=== PATIENT | male | born 1955 | race Caucasian/White ===

== ENCOUNTER → 2018-01-17 10:07 | Outpatient (CLI) | payer BC, SELFPAY ==
[2018-01-17 11:04] LABS: Hemoglobin A1C% w Est Avg Glu 6.7 % (4.0-6.0)
[2018-01-17 11:12] LABS: Alanine Aminotransferase 45 IU/L (21-72); Albumin 4.4 g/dL (3.5-5.0); Albumin Globulin Ratio 1.5 (1.0-2.8); Alkaline Phosphatase 71 U/L (38-126); Aspartate Aminotransferase 43 IU/L (17-59); BUN Creatinine Ratio 22.2 (6-22); Bilirubin Total 0.6 mg/dL (0.2-1.3); Blood Urea Nitrogen 20 mg/dL (9-20); Calcium 9.3 mg/dL (8.4-10.2); Carbon Dioxide 31 mmol/L (22-32); Chloride 104 mmol/L (98-107); Cholesterol 120 mg/dL (140-199); Estimated Glomerular Filt Rate > 60.0 mL/min (>60); Globulin 2.9 g/dL (1.7-4.1); Glucose 113 mg/dL (80-110); HDL Cholesterol 44 mg/dL (40-60); HEMOLYSIS < 15 (0-50); LDL Cholesterol Calculated 56 mg/dL (<100); Potassium 4.5 mmol/L (3.4-5.1); Sodium 144 mmol/L (137-145); Total Protein 7.3 g/dL (6.3-8.2); Triglycerides 98 mg/dL (35-150)
[2018-01-17 11:35] LABS: Free T4, Direct Thyroxine 0.91 ng/dL (0.78-2.19)
[2018-01-17 11:48] LABS: Thyroid Stimulating Hormone 4.21 uIU/mL (0.47-4.68)
[2018-01-17 11:57] LABS: Free T3, Triiodothyronine Free 3.36 pg/mL (2.77-5.27)
== END ==
PROVIDERS: Visit Provider Internal Medicine
DX: E11.9 Type 2 diabetes mellitus without complications (principal); E03.9 Hypothyroidism, unspecified; I10 Essential (primary) hypertension; E78.00 Pure hypercholesterolemia, unspecified; E66.9 Obesity, unspecified
CPT/HCPCS: 36415; 80053; 80061; 83036; 84439; 84443; 84481

== ENCOUNTER → 2018-05-16 10:15 | Outpatient (CLI) | payer BC, SELFPAY ==
--- NOTE | 2018-05-16 | DI.RAD.S_ITS ---
PROCEDURE: XR CHEST 2V INDICATIONS: COUGH TECHNIQUE: 2 views of the chest were acquired. COMPARISON: None. FINDINGS: Surgical changes and devices: None. Lungs and pleura: Lungs are clear. No pleural effusions or pneumothorax. Mediastinum: Mediastinal contours are normal. Heart size is normal. Bones and chest wall: No suspicious bony abnormalities. Soft tissues appear unremarkable. IMPRESSION: No acute cardiopulmonary findings. Dictated by: Yara Parra M.D. on 05/16/2018 at 10:50 Approved by: Yara Parra M.D. on 05/16/2018 at 10:51
== END ==
PROVIDERS: PCP Internal Medicine; Visit Provider Student in an Organized Health Care Education/Training Program
DX: R05 Cough (principal)
CPT/HCPCS: 71046

== ENCOUNTER → 2019-02-02 16:03 | Outpatient (ROUT) | payer BC, SELFPAY ==
[2019-02-02 16:37] LABS: Alanine Aminotransferase 31 IU/L (21-72); Aspartate Aminotransferase 43 IU/L (17-59); BUN Creatinine Ratio 26.3 (6-22); Blood Urea Nitrogen 21 mg/dL (9-20); Carbon Dioxide 27 mmol/L (22-32); Chloride 101 mmol/L (98-107); Cholesterol 164 mg/dL (140-199); Estimated Glomerular Filt Rate > 60.0 mL/min (>60); Glucose 92 mg/dL (80-110); HDL Cholesterol 55 mg/dL (40-60); HEMOLYSIS 49 (0-50); LDL Cholesterol Calculated 72 mg/dL (<100); Potassium 4.7 mmol/L (3.4-5.1); Sodium 139 mmol/L (137-145); Triglycerides 184 mg/dL (35-150)
[2019-02-02 17:09] LABS: TSH w/ Reflex to FT4 2.43 uIU/mL (0.47-4.68)
== END ==
PROVIDERS: PCP Internal Medicine; Visit Provider Internal Medicine
DX: E78.00 Pure hypercholesterolemia, unspecified (principal); I10 Essential (primary) hypertension; E03.9 Hypothyroidism, unspecified; E11.9 Type 2 diabetes mellitus without complications
CPT/HCPCS: 80048; 80061; 83036; 84443; 84450; 84460

== ENCOUNTER → 2021-10-24 07:56 | Outpatient (CLI) | payer MEDICARE, OTHER, SELFPAY ==
--- NOTE | 2021-10-24 | DI.MRI.S_ITS ---
PROCEDURE: MR LUMBAR SPINE WO CON INDICATIONS: Spinal stenosis, lumbar region TECHNIQUE: Noncontrast sagittal T1 spin echo and T2 fast echo, sagittal STIR, and T2 fast spin echo through the lumbar spine. In cases with scoliosis, additional coronal T2 fast spin echo may be performed. COMPARISON: None. FINDINGS: Straightening of the usual lumbar lordosis. No listhesis. Vertebral body heights maintained. No suspicious focal marrow signal abnormality. Normal position and appearance of the conus. Prevertebral and paraspinous soft tissues are normal. Indeterminate left renal lesion which is slightly T2 hyperintense to normal cortex measuring 1.4 centimeters. T12-L1: No spinal canal or neural foraminal stenosis. L1-L2: Diffuse disc bulge and a superimposed broad-based posterior disc protrusion flattening and indenting the ventral thecal sac with mild mass effect on the descending L2 nerve roots. Foraminal components of the disc bulge and facet hypertrophy combine to produce mild right greater than left neural foraminal stenosis. L2-L3: Diffuse disc bulge flattens the ventral thecal sac without mass effect upon the traversing L3 nerve roots. Foraminal components of the disc bulge and facet hypertrophy contribute to trace neural foraminal narrowing on the left. L3-L4: Diffuse disc bulge and superimposed broad-based posterior disc protrusion flattens and indents the ventral thecal sac with mild mass effect upon the descending L4 nerve roots in both subarticular zones. Mild bilateral neural foraminal narrowing due to foraminal components of the disc bulge and facet hypertrophy. L4-L5: Diffuse disc bulge with a superimposed broad-based posterior disc protrusion flattens and indents the ventral thecal sac with moderate mass effect upon the descending L5 nerve roots in both subarticular zones, right greater than left. Foraminal components of the disc bulge and facet hypertrophy contribute to moderate right and mild left neural foraminal stenosis with mass effect upon the exiting right L4 nerve root. L5-S1: Diffuse disc bulge with mild displacement of the descending right S1 nerve roots in the right subarticular zone. Moderate bilateral neural foraminal stenosis with disc material abutting and perhaps slightly flattening the exiting L5 nerve roots in both neural foramina. IMPRESSION: Multilevel multifactorial degenerative changes worst at L4-L5 and L5-S1. Indeterminate 1.3 cm left renal mass, likely a proteinaceous or hemorrhagic cyst. Dictated by: Cipriano Dominguez M.D. on 10/24/2021 at 9:20 Approved by: Cipriano Dominguez M.D. on 10/24/2021 at 9:45
== END ==
PROVIDERS: Referring Provider Orthopaedic Surgery; Visit Provider Orthopaedic Surgery
DX: M48.062 Spinal stenosis, lumbar region with neurogenic claudication (principal); M47.816 Spondylosis without myelopathy or radiculopathy, lumbar region; M47.817 Spondylosis without myelopathy or radiculopathy, lumbosacral region; N28.89 Other specified disorders of kidney and ureter
CPT/HCPCS: 72148

== ENCOUNTER 2021-10-25 12:19 | Emergency (ER) | payer MEDICARE, OTHER, SELFPAY ==
[2021-10-25 12:26] VITALS: BP 191/88; PULSE 85; RESP 18; TEMP 35.7; O2SAT 98; BMI 38.0
--- NOTE | 2021-10-25 12:36 | DI.RAD.S_ITS ---
PROCEDURE: XR HUMERUS RT 2V INDICATIONS: fall 2 weeks ago, grabbed door jamb with right arm TECHNIQUE: 2 a views of the humerus were acquired. COMPARISON: None. FINDINGS: Bones: No fractures or dislocations. No suspicious bony lesions. Age-appropriate bony degenerative changes are seen. Soft tissues: No suspicious soft tissue calcifications. IMPRESSION: Plain film study within normal limits for age. Dictated by: Francisco Schulte M.D. on 10/25/2021 at 12:34 Approved by: Francisco Schulte M.D. on 10/25/2021 at 12:35
[2021-10-25 13:05] VITALS: PULSE 75
--- NOTE | 2021-10-25 13:43 | DI.US.S_ITS ---
PROCEDURE: US PERIPH VENOUS UP EXTREM RT INDICATIONS: dvt? TECHNIQUE: Real-time imaging, as well as color and pulse Doppler interrogation, was performed of the right upper extremity deep veins from the inferior neck to the antecubital fossa. COMPARISON: [facility], CR, XR HUMERUS RT 2V, 10/25/2021, 13:46. FINDINGS: The internal jugular vein, visualized portions of the subclavian vein, axillary, and brachial veins are free of intraluminal thrombus. Where physically possible, the veins are normally compressible. Color and pulse Doppler demonstrate normal intraluminal flow, with expected phasicity and pulsatility. Additional scanning of the cephalic and basilic veins of the superficial system demonstrate normal compressibility, without thrombus. No significant soft tissue abnormality can be seen along the area of clinical bruising. IMPRESSION: Negative for deep venous thrombosis. Dictated by: Francisco Schulte M.D. on 10/25/2021 at 13:27 Approved by: Francisco Schulte M.D. on 10/25/2021 at 13:28
--- NOTE | 2021-10-25 15:42 | ED_ITS ---
HPI - Extremity Injury (Upper) General Chief Complaint: Extremity Injury, Upper Stated Complaint: Right Arm Internal Bleeding Time Seen by Provider: 10/25/21 13:00 Source: patient Mode of arrival: Ambulatory History of Present Illness HPI narrative: This 65-year-old gentleman comes to the ED with a large ecchymosis over the right anterior shoulder and upper arm. He says it has appeared gradually over the past 48 hours. He says about 2 and half weeks ago he slipped and almost fell and caught himself by grabbing onto a door jam he may have bumped his right arm slightly at the time. He did not notice any pain at all until the past 2 days. He takes DOAC because of coronary disease. He also suffers from obstructive sleep apnea. He denies any other signs or symptoms of illness or injury including fever or chest symptoms Related Data Home Medications Medication Instructions Recorded Confirmed aspirin 81 mg tablet,delayed 162 mg PO Q DAY ##0 07/30/10 02/02/19 release amlodipine 5 mg tablet (Norvasc) 5 mg PO QDAY ##0 06/23/17 02/02/19 atorvastatin 40 mg tablet 40 mg PO 90 days 09/27/17 02/02/19 levothyroxine 25 mcg tablet 25 mcg PO 90 days 09/27/17 02/02/19 losartan 50 mg tablet 50 mg PO 90 days 09/27/17 02/02/19 multivitamin 1 tab PO DAILY 09/27/17 02/02/19 nitroglycerin 0.4 mg sublingual 0.4 mg sublingual 12 days 09/27/17 02/02/19 tablet [employer] Remstar CPAP #1 ea 02/07/19 Previous Rx's Medication Instructions Recorded hydroxyzine pamoate 25 mg capsule 25 mg PO QID PRN anxiety #60 caps 12/22/17 sertraline 100 mg tablet 100 mg PO DAILY #90 tabs 07/14/18 Allergies Allergy/AdvReac Type Severity Reaction Status Date / Time codeine [CODEINE] Allergy Severe BAD RASH Unverified 02/02/19 14:38 Review of Systems Review of Systems Narrative: Complete review of systems is negative other than as noted Patient History Medical History (Updated 10/25/21 @ 15:50 by Rajinder Banuelos MD) Obesity (BMI 30-39.9) Obstructive sleep apnea Social History Smoking Status: Never smoker Smoking Status: Never smoker alcohol intake frequency: holidays/special occasions only Substance Use Type: does not use Exam Narrative Exam Narrative: GENERAL: Alert, cooperative and in no distress. HEAD: Atraumatic. Normocephalic. EYES: Sclera are clear without icterus. Extraocular movements are full. ENT: No rhinorrhea NECK: No visible abnormality RESPIRATORY: No respiratory distress GASTROINTESTINAL: Nondistended EXTREMITIES: He has a large ecchymosis starting at the anterior shoulder radiating down onto the biceps area. There is no fluctuance or erythema or excessive tenderness or warmth. NEURO: Nonfocal, normal speech SKIN: No rash or erythema of visible areas PSYCH: Normally oriented. Normal range of affect. Appropriate behavior Initial Vital Signs Initial Vital Signs: Vital Signs Temperature 96.3 F L 10/25/21 12:26 Pulse Rate 85 10/25/21 12:26 Respiratory Rate 18 10/25/21 12:26 Blood Pressure 191/88 H 10/25/21 12:26 Pulse Oximetry 98 10/25/21 12:26 Oxygen Delivery Method 10/25/21 12:26 Course Orders Ordered: ED Orders 10/25/21 12:36 XR humerus RT 2V Stat 10/25/21 13:43 US periph venous up extrem rt Stat Vital Signs Vital signs: Vital Signs - 8 hr 10/25/21 12:26 10/25/21 13:05 Temperature 96.3 F L Pulse Rate 85 Pulse Rate [Right Radial] 75 Respiratory Rate 18 Blood Pressure 191/88 H Pulse Oximetry 98 Oxygen Delivery Method Room Air MDM - Extremity Injury (Upper) Imaging Data US - DVT: Radiologist's Impression: IMPRESSION: Negative for deep venous thrombosis. Dictated by: Francisco Schulte M.D. on 10/25/2021 at 13:27 Approved by: Francisco Schulte M.D. on 10/25/2021 at 13:28 [facility] Narrative Medical decision making narrative: This looks like an ecchymosis. I do not suspect DVT especially in light of the negative ultrasound. I think this is probably a minor injury that is made worse because of his anticoagulant. I recommend compression dressing, warm compresses and outpatient follow-up Discharge Plan Departure Patient Disposition: Home Clinical Impression: Hematoma Activity Restrictions/Additional Instructions: You have a hematoma in your arm. No deep vein clot and no fluid collection that needs any special treatment. This is probably a result of the anticoagulant that you take in the setting of a relatively minor injury otherwise. To help this resolve more quickly I recommend compressive dressings and warm compresses. Usually expected to slowly resolve over the next few weeks. If he becomes dramatically more painful or feels like a water balloon, follow-up with your doctor for further evaluation. If you have other severe symptoms such as sudden shortness of breath or fainting or chest pain, return to the emergency department. Continue to take your medications as previously prescribed. Prescriptions: No Action atorvastatin 40 mg TABLET 40 mg PO 90 Days losartan 50 mg TABLET 50 mg PO 90 Days levothyroxine 25 mcg TABLET 25 mcg PO 90 Days nitroglycerin 0.4 mg tablet, sublingual 0.4 mg SL 12 Days multivitamin tablet 1 tab PO DAILY hydroxyzine pamoate 25 mg capsule 25 mg PO QID PRN (Reason: anxiety) Qty: 60 2RF Rx Instructions: OK to take 1-2 caps every 6 hours aspirin 81 MG tablet,delayed release (DR/EC) 162 mg PO Q DAY Qty: 0 amlodipine [Norvasc] 5 MG tablet 5 mg PO QDAY Qty: 0 sertraline 100 mg tablet 100 mg PO DAILY Qty: 90 0RF Rx Instructions: take 1 tab daily (DME) [employer] Remstar CPAP Qty: 1 Dose Instruction: As directed Rx Instructions: Pressure: 8-16 cmH2O DME: [facility] Referrals: Ivy Obrien PA-C [Primary Care Provider] -
[2021-10-25 16:07] VITALS: BP 125/61; PULSE 72; RESP 18; O2SAT 98
== END 2021-10-25 16:08 | disposition home or self-care (01) ==
PROVIDERS: Emergency Provider Family Medicine Addiction Medicine; PCP Student in an Organized Health Care Education/Training Program
DX: S40.011A Contusion of right shoulder, initial encounter (principal); W19.XXXA Unspecified fall, initial encounter
CPT/HCPCS: 73060; 93971; 99281; 99283

== ENCOUNTER → 2021-10-31 18:50 | Outpatient (CLI) | payer MEDICARE, OTHER, SELFPAY ==
--- NOTE | 2021-10-31 | DI.MRI.S_ITS ---
PROCEDURE: MR SHOULDER RT WO CON INDICATIONS: Right proximal biceps tear TECHNIQUE: Noncontrast oblique coronal T2 fast spin echo with fat saturation, oblique sagittal T1 spin echo and T2 fast spin echo with fat saturation, axial T1 spin echo and T2 fast spin echo with fat saturation through the shoulder. COMPARISON: [facility], CR, XR HUMERUS RT 2V, 10/25/2021, 13:46. FINDINGS: Image quality: Partially degraded by motion artifact. Rotator cuff: Moderate T2 signal elevation throughout the supraspinatus and infraspinatus tendons at the humeral insertion sites extending to the musculotendinous junctions, indicating tendinopathy. Superimposed high-grade intrasubstance and articular surface tearing of the anterior/mid supraspinatus tendon at the humeral insertion site extending to the musculotendinous junction, measuring roughly 8 mm diameter. Low-grade partial-thickness bursal surface tearing of the posterior supraspinatus tendon at the humeral insertion site. Low-grade partial-thickness intrasubstance tearing of the mid and anterior infraspinatus tendon at the humeral insertion site. Low-grade partial-thickness intrasubstance tearing of the upper and lower subscapularis tendon at the humeral insertion site extending to the musculotendinous junction. No rotator cuff atrophy. Bones and bursae: No bone marrow contusions or fractures. Mild glenohumeral and moderate acromioclavicular joint degeneration. The acromion demonstrates conventional anatomy, without an os acromiale. No pathologic subacromial-subdeltoid or subcoracoid bursal fluid is present. Capsule and soft tissues: Labrum is grossly unremarkable The long head of the biceps tendon demonstrates normal location and morphology. The rotator interval appears normal, without fibrosis. The coracohumeral ligament is normal in thickness. IMPRESSION: 1. Supraspinatus and infraspinatus tendinopathy. 2. Superimposed high-grade tearing of the anterior supraspinatus tendon. Low-grade tearing of the remainder of the supraspinatus as well as the infraspinatus and subscapularis tendons. 3. Acromioclavicular osteoarthritis. Dictated by: Masood Fuentes M.D. on 11/03/2021 at 8:19 Approved by: Masood Fuentes M.D. on 11/03/2021 at 8:21
== END ==
PROVIDERS: PCP Student in an Organized Health Care Education/Training Program; Referring Provider Orthopaedic Surgery; Visit Provider Orthopaedic Surgery
DX: S46.211A Strain of muscle, fascia and tendon of other parts of biceps, right arm, initial encounter (principal); M75.111 Incomplete rotator cuff tear or rupture of right shoulder, not specified as traumatic; M19.011 Primary osteoarthritis, right shoulder
CPT/HCPCS: 73221

== ENCOUNTER → 2023-09-23 08:50 | Outpatient (CLI) | payer MEDICARE, OTHER, SELFPAY ==
[2023-09-23 09:33] LABS: Hemoglobin A1C% w Est Avg Glu 6.4 % (4.0-6.0)
[2023-09-23 09:34] LABS: Add Manual Diff / Slide Review NO; Basophils Absolute Auto 100 /uL (0-100); Basophils Percent Auto 1.1 % (0-2); Eosinophils Absolute Auto 200 /uL (0-450); Hematocrit 39.5 % (41-53); Hemoglobin 13.1 g/dL (13.5-17.5); Lymphocytes Absolute Auto 2300 /uL (1100-4500); Lymphocytes Percent Auto 19.5 % (25-40); Mean Corpuscular HGB Conc 33.2 % (30-36); Mean Corpuscular Hemoglobin 28.3 PG (26-34); Mean Corpuscular Volume 85.5 fL (80-100); Monocytes Absolute Auto 1000 /uL (0-900); Monocytes Percent Auto 8.5 % (3-14); Neutrophils Absolute Auto 8200 /uL (1500-7000); Neutrophils Percent Auto 68.9 % (50-75); Platelet Count 196 X10^3/uL (150-400); Red Blood Cell Count 4.62 X10^6/uL (4.5-5.9); Red Cell Distribution Width 13.1 % (11.6-14.8); White Blood Cell Count 11.8 X10^3/uL (4.5-11.0)
[2023-09-23 09:43] LABS: Alanine Aminotransferase 24 IU/L (<50); Albumin 4.4 g/dL (3.5-5.0); Albumin Globulin Ratio 1.6 (1.0-2.8); Alkaline Phosphatase 69 U/L (38-126); Aspartate Aminotransferase 29 IU/L (17-59); BUN Creatinine Ratio 26.8 (6-22); Bilirubin Total 1.2 mg/dL (0.2-1.3); Blood Urea Nitrogen 30 mg/dL (9-20); Calcium 9.3 mg/dL (8.4-10.2); Carbon Dioxide 22 mmol/L (22-32); Chloride 107 mmol/L (98-107); Cholesterol 94 mg/dL (140-199); Estimated Glomerular Filt Rate > 60 mL/min (>60); Globulin 2.8 g/dL (1.7-4.1); Glucose 125 mg/dL (80-110); HDL Cholesterol 48 mg/dL (40-60); HEMOLYSIS < 15 (0-50); LDL Cholesterol Calculated 21 mg/dL (<100); Potassium 4.4 mmol/L (3.4-5.1); Sodium 140 mmol/L (137-145); Total Protein 7.2 g/dL (6.3-8.2); Triglycerides 125 mg/dL (35-150)
[2023-09-23 10:13] LABS: TSH w/ Reflex to FT4 3.12 uIU/mL (0.47-4.68)
== END ==
LOC: LAB 08:51
PROVIDERS: PCP Family Medicine; Referring Provider Family Medicine; Visit Provider Family Medicine
DX: G47.33 Obstructive sleep apnea (adult) (pediatric) (principal); Z76.89 Persons encountering health services in other specified circumstances; E03.9 Hypothyroidism, unspecified; E66.9 Obesity, unspecified; Z86.73 Personal history of transient ischemic attack (TIA), and cerebral infarction without residual deficits
CPT/HCPCS: 36415; 80053; 80061; 83036; 84443; 85025

== ENCOUNTER → 2023-10-06 12:28 | Outpatient (CLI) | payer MEDICARE, OTHER, SELFPAY ==
--- NOTE | 2023-10-06 12:29 | DI.MRI.S_ITS ---
PROCEDURE: MR KNEE RT WO CON INDICATIONS: MEDIAL MENISCUS TEAR TECHNIQUE: Noncontrast sagittal PD fast spin echo and T2 fast spin echo with fat saturation, sagittal 3-D FLASH with fat saturation; coronal T1 spin echo and PD fast spin echo with fat saturation, and axial PD fast spin echo with fat saturation through the knee. COMPARISON: [facility] [place], CR, XR KNEE 4+ VIEWS RIGHT, 09/24/2023, 10:31. FINDINGS: Image quality: Excellent. Menisci: There is a complex tear involving the body and posterior horn of the medial meniscus which extends into the posterior root attachment (01/26; 10/29). There is 3 mm of associated medial meniscal body extrusion into the medial gutter. The lateral meniscus and its posterior root attachment are normal. Cruciate ligaments: The anterior and posterior cruciate ligaments appear intact. Medial structures: The medial collateral ligament appears intact. The posterior oblique ligament, semimembranosus tendon insertions, oblique popliteal ligament, and meniscocapsular junction appear intact. Visualized portions of the pes anserinus tendons appear normal. No abnormal bursal fluid. Lateral structures: The lateral collateral ligament, long and short heads of the biceps femoris tendon appear intact. The popliteus tendon appears normal; the popliteofibular ligament appears intact. The posterosuperior and anteroinferior popliteomeniscal fascicles appear intact. The arcuate and fabellofibular ligaments appear intact, on either side of the lateral inferior geniculate artery. Iliotibial band appears normal. Anterior structures: The quadriceps and patellar tendons appear intact. Patellar alignment is normal. No femoral trochlear dysplasia. No edema in the infrapatellar fat pad. Bones and cartilage: There is a small focus of subarticular marrow edema at the weight-bearing medial femoral condyle with associated compacted bone (01/21; 09/28) and minimal articular surface depression. Otherwise, there is no fracture or dislocation. The marrow signal is otherwise within normal limits. There is partial-thickness chondral loss and fissuring at the weight-bearing medial and lateral compartments (01/23). Surface fibrillation, a deep partial-thickness chondral fissuring and delamination is present at the lateral patellar rage and median patellar facet (08/13). Joint space: Small knee joint effusion with mild synovial proliferation. Small Andrews's cyst with perifascial edema around the medial head of the gastrocnemius muscle. Other: Mild prepatellar and infrapatellar soft tissue edema is present (/). IMPRESSION: 1. Recent, small impaction fracture at the weight-bearing medial femoral condyle. 2. Complex tear of the medial meniscus with extension to the posterior root attachment and 3 mm of meniscal body extrusion. 3. Mild tricompartmental osteoarthritis, small joint effusion with synovitis, and associated articular cartilage defects. 4. Small Andrews's cyst with signs of recent leakage. Dictated by: Maciel Mendez M.D. on 10/06/2023 at 17:31 Approved by: Maciel Mendez M.D. on 10/06/2023 at 17:46
== END ==
PROVIDERS: PCP Family Medicine; Referring Provider Orthopaedic Surgery Foot and Ankle Surgery; Visit Provider Orthopaedic Surgery Foot and Ankle Surgery
DX: S72.431A Displaced fracture of medial condyle of right femur, initial encounter for closed fracture (principal); S83.231A Complex tear of medial meniscus, current injury, right knee, initial encounter; M17.11 Unilateral primary osteoarthritis, right knee; M25.461 Effusion, right knee; M71.21 Synovial cyst of popliteal space [Baker], right knee; M65.9 Synovitis and tenosynovitis, unspecified
CPT/HCPCS: 73721

== ENCOUNTER → 2023-10-19 19:05 | Outpatient (CLI) | payer MEDICARE, OTHER, SELFPAY ==
--- NOTE | 2023-10-19 19:06 | DI.MRI.S_ITS ---
PROCEDURE: MR SHOULDER RT WO CON INDICATIONS: STRAIN OF MUSCLE TECHNIQUE: Noncontrast oblique coronal T2 fast spin echo with fat saturation, oblique sagittal T1 spin echo and T2 fast spin echo with fat saturation, axial T1 spin echo and T2 fast spin echo with fat saturation through the shoulder. COMPARISON: [facility], CR, XR SHOULDER 2+ VIEWS RIGHT, 10/11/2023, 8:26. FINDINGS: Image quality: Excellent. Rotator cuff: Postsurgical changes from prior rotator cuff tendon repair with associated metal artifact that mildly obscures adjacent structures. Recurrent full-thickness tearing of the supraspinatus tendon and likely the anterior portion of the infraspinatus tendon with tendon retraction measuring up to 3.6 cm from the distal insertion. A displaced retracted surgical anchor is seen superolateral to the greater tuberosity (see image 4 of series 9). Teres minor tendon is intact. There is moderate grade partial articular sided tearing of the subscapularis tendon at the superior insertion. Rotator cuff musculature is normal in bulk. Bones and bursae: No acute trabecular bone injury or fracture. Metal surgical anchor noted at the humeral head. No focal glenohumeral cartilage defect. Moderate degenerative changes are seen at the acromioclavicular joint with subchondral cystic changes and subchondral edema as well as marginal osteophytes. Glenohumeral joint fluid communicates with the subacromial/subdeltoid bursa. Capsule and soft tissues: No acute displaced labral tear. Status post biceps long head tenodesis with an intact surgical construct. Glenohumeral ligaments appear to be intact. IMPRESSION: 1. Postsurgical changes from prior rotator cuff repair. Recurrent full-thickness tearing of the supraspinatus tendon and likely the fibers of the infraspinatus tendon from their distal insertions with proximal tendon retraction measuring up to 3.6 cm. A retracted and displaced surgical anchor is seen superolateral to the greater tuberosity. 2. Moderate grade partial articular sided tearing of the subscapularis tendon at the superior insertion. 3. Status post biceps long head tenodesis. 4. Moderate acromioclavicular osteoarthrosis. 5. Glenohumeral joint fluid communicates with the subacromial/subdeltoid bursa. Approved by: Griffin Macias M.D. on 10/20/2023 at 10:02
== END ==
PROVIDERS: PCP Family Medicine; Referring Provider Orthopaedic Surgery; Visit Provider Orthopaedic Surgery
DX: T84.428A Displacement of other internal orthopedic devices, implants and grafts, initial encounter (principal); S46.211A Strain of muscle, fascia and tendon of other parts of biceps, right arm, initial encounter; S46.011A Strain of muscle(s) and tendon(s) of the rotator cuff of right shoulder, initial encounter; M19.011 Primary osteoarthritis, right shoulder; X58.XXXA Exposure to other specified factors, initial encounter
CPT/HCPCS: 73221

== ENCOUNTER → 2023-12-31 13:05 | Outpatient (CLI) | payer MEDICARE, OTHER, SELFPAY ==
--- NOTE | 2023-12-31 13:06 | DI.CT.S_ITS ---
PROCEDURE: CT SHOULDER RIGHT WITHOUT CON INDICATIONS: PAIN IN RT SHOULDER TECHNIQUE: Noncontrast 1 mm thick sections acquired from the acromioclavicular joint to the inferior scapula, with coronal and sagittal reformatting. COMPARISON: [facility], CR, XR SHOULDER 2+ VIEWS RIGHT, 10/11/2023, 8:26. [facility], MR, MR SHOULDER RT WO CON, 10/19/2023, 19:22. FINDINGS: Image quality: Excellent. Bones: Moderate acromioclavicular joint osteoarthritic changes are seen with joint space narrowing, subchondral sclerosis and marginal osteophyte formation. Moderate glenohumeral joint osteoarthritic changes also seen. An anchor is noted posterior and superior to the lateral aspect of humeral head. No acute fracture or dislocation. Postsurgical changes also noted adjacent to greater tuberosity of humeral head. No suspicious bony lesions. The visualized right upper to mid ribs are intact. Soft tissues: There is slight superior migration of humeral head in relation to glenoid. Patient's known full-thickness rupture of distal supraspinatus is less well seen on the current study however is suggested with displacement of the surgical hardware external to the humeral head. No abnormal soft tissue calcifications. No significant rotator cuff muscle atrophy is noted on sagittal images. There is small to moderate joint effusion and subacromial subdeltoid bursal fluid, no gross loose bodies. The visualized right lung field is clear. IMPRESSION: 1. Study is for surgical planning. 2. Moderate acromioclavicular joint and glenohumeral joint osteoarthritis. No acute fracture or dislocation. Postsurgical changes in posterior lateral humeral head with surgical hardware appears external to the humeral head suggest clinical correlation. 3. Slight superior migration of humeral head in relation to glenoid and is consistent with patient's MR finding of full-thickness supraspinatus tendon rupture. No significant rotator cuff muscle atrophy. No abnormal soft tissue calcifications. 4. Small to moderate joint effusion and subacromial subdeltoid bursal fluid, no loose bodies. Dictated by: Milton Sauceda M.D. on 01/01/2024 at 21:28 Approved by: Milton Sauceda M.D. on 01/01/2024 at 21:35
== END ==
PROVIDERS: PCP Family Medicine; Referring Provider Orthopaedic Surgery; Visit Provider Orthopaedic Surgery
DX: M19.011 Primary osteoarthritis, right shoulder (principal); M75.111 Incomplete rotator cuff tear or rupture of right shoulder, not specified as traumatic; M25.411 Effusion, right shoulder; M25.511 Pain in right shoulder
CPT/HCPCS: 73200

== ENCOUNTER 2024-01-19 11:46 | Emergency (ER) | payer MEDICARE, OTHER, SELFPAY ==
[2024-01-19] VITALS (7 sets, daily range): BP systolic 111–128; BP diastolic 58–74; PULSE 70–119; RESP 11–20; TEMP 37.2; O2SAT 94–98; BMI 35.2
--- NOTE | 2024-01-19 11:53 | EKG_ITS ---
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
--- NOTE | 2024-01-19 11:54 | DI.CT.S_ITS ---
PROCEDURE: CT HEAD/BRAIN WO CON INDICATIONS: fall syncope TECHNIQUE: Noncontrast 4.5 mm thick angled axial sections acquired from the foramen magnum to the vertex, with coronal and sagittal reformats. For radiation dose reduction, the following was used: automated exposure control, adjustment of mA and/or kV according to patient size. COMPARISON: None. FINDINGS: Image quality: Diagnostic. CSF spaces: Basal cisterns are patent. No extra-axial fluid collections. The ventricles are symmetric in size and shape. Brain: No intracranial bleeds or masses. Possible small focus of encephalomalacia within the peripheral right frontal lobe versus prominent sulcus. There is cerebral volume loss for age, with resultant ventricular and sulcal prominence. There are periventricular and deep white matter chronic small vessel ischemic changes. There is intracranial internal carotid artery atherosclerosis. Skull and face: Calvarium and visualized facial bones appear intact, without suspicious lesions. Sinuses: Visualized sinuses and mastoids are clear. IMPRESSION: No acute intracranial pathology. Dictated by: John Araujo M.D. on 01/19/2024 at 13:23 Approved by: John Araujo M.D. on 01/19/2024 at 13:25
--- NOTE | 2024-01-19 11:54 | DI.CT.S_ITS ---
PROCEDURE: CT ANGIO CHEST PE PROTOCOL INDICATIONS: syncope , hx afib not on anticoag TECHNIQUE: After the administration of intravenous contrast, 2 mm thick sections acquired from the pulmonary apices to the posterior costophrenic angles. 3-dimensional maximum intensity projection (MIP) coronal and sagittal reformats were then acquired through the thorax. For radiation dose reduction, the following was used: automated exposure control, adjustment of mA and/or kV according to patient size. COMPARISON: [facility], CT, CT SHOULDER RIGHT WITHOUT CON, 12/31/2023, 13:12. [facility], CT, CT HEAD/BRAIN WO CON, 01/19/2024, 12:47. FINDINGS: Image quality: There is artifact associated with the metallic hardware. Artifact from the metallic hardware is reduced by metal reconstruction algorithm. Pulmonary arteries: Pulmonary arteries are normal in size, and demonstrate no intraluminal filling defects to suggest central pulmonary embolism. Lower Neck: No enlarged lymph nodes. Thyroid: No thyroid nodules which require sonographic follow up, per consensus guidelines. Axillae: No enlarged lymph nodes. Chest Wall: Soft tissue gas and inflammatory change can be seen involving right shoulder. Bones: Right shoulder arthroplasty hardware is seen. Moderate dextroconvex scoliosis is seen. Degenerative changes are seen, particular involving the lower cervical spine. Lungs and Pleura: No pneumothorax or pleural effusions. No consolidation or suspicious nodules. Heart: Heart size is normal. No pericardial effusion. Thoracic Vessels: No aortic aneurysm. Mediastinum and Melita: No enlarged lymph nodes. Esophagus: No wall thickening. No hiatal hernia. Upper Abdomen: Cholecystectomy clips are seen. Visualized upper abdomen solid organs and bowel loops appear normal. IMPRESSION: No pulmonary embolus. No acute cardiopulmonary process. Recent right shoulder surgery, with associated soft tissue gas. Additional findings: Moderate dextroconvex scoliosis Cholecystectomy Dictated by: Francisco Schulte M.D. on 01/19/2024 at 12:34 Approved by: Francisco Schulte M.D. on 01/19/2024 at 12:37
--- NOTE | 2024-01-19 12:06 | ED.SYNCOPE ---
HPI - Syncope General Chief Complaint: Syncope Stated Complaint: Syncope Time Seen by Provider: 01/19/24 11:53 Source: patient and EMS Mode of arrival: EMS Limitations: no limitations History of Present Illness HPI narrative: Patient is a 68-year-old male past medical history of paroxysmal AFib on Eliquis, hypertension hypothyroidism presents to emergency department via EMS for evaluation of syncopal episode. To note patient just had a reversal of a total right shoulder repaired in [facility] yesterday. States that today he was in the restroom attempting take off his shirt when he passed out. He states that he did wake up and noticed that he did hit the back of his head. He has not been on his Eliquis for the past 3 days, he states he is supposed to be back on it tomorrow night. He currently is not complaining of any symptoms no chest pain or shortness of breath. He states that he does have a history of vasovagal syncope. He has not complaining of any pain or discomfort to his right shoulder or arm. Related Data Home Medications Medication Instructions Recorded Confirmed aspirin 81 mg tablet,delayed 162 mg PO Q DAY ##0 07/30/10 09/23/23 release multivitamin 1 tab PO DAILY 09/27/17 02/02/19 nitroglycerin 0.4 mg sublingual 0.4 mg sublingual 12 days 09/27/17 02/02/19 tablet [employer] Remstar CPAP #1 ea 02/07/19 latanoprost 0.005 % eye drops drp EYE-BOTH 09/23/23 09/23/23 Previous Rx's Medication Instructions Recorded rivaroxaban 20 mg tablet (Xarelto) 20 mg PO DAILY #90 tabs 10/25/23 amlodipine 5 mg tablet (Norvasc) 5 mg PO QDAY #90 tabs 11/10/23 atorvastatin 40 mg tablet 40 mg PO BEDTIME 90 days #90 tabs 11/10/23 levothyroxine 50 mcg tablet 50 mcg PO DAILY #90 tabs 11/10/23 losartan 100 mg tablet 100 mg PO DAILY #90 tabs 11/10/23 metformin 500 mg tablet 500 mg PO BID #180 tabs 11/10/23 metoprolol succinate 25 mg 25 mg PO DAILY #90 tabs 11/10/23 tablet,extended release 24 hr sertraline 100 mg tablet 100 mg PO DAILY #90 tabs 11/10/23 semaglutide 1 mg/dose (4 mg/3 mL) 1 mg (0.75 mL) SUBCUT QWEEK #3 mL 12/30/23 subcutaneous pen injector (Ozempic) Allergies Allergy/AdvReac Type Severity Reaction Status Date / Time codeine [CODEINE] Allergy Severe BAD RASH Verified 01/19/24 11:54 Review of Systems Review of Systems Narrative: General: Denies fever, chills, weight loss HEENT: Denies headache, eye drainage, eye irritation, head trauma, sore throat, voice change Cardiovascular: Denies any chest pain, palpitations, shortness of breath, tachycardia Respiratory: Denies any shortness of breath, cough, wheeze, stridor GI/: Denies any abdominal pain, nausea, vomiting, diarrhea, bright red blood per rectum, melanotic stools, urinary frequency, urinary retention, dysuria, hematuria MSK: Denies any joint pain, muscle pains, swelling Skin: Denies any rashes, lesions, discoloration Neuro: Positive syncope, Denies any headache, lightheadedness, dizziness, fainting, weakness Psych: Denies SI/HI Patient History Medical History (Updated 01/19/24 @ 13:46 by Jagdeep Mcdonald DO) Encounter to establish care with new doctor Obesity (BMI 30-39.9) Obstructive sleep apnea Social History Smoking Status: Never smoker Smoking Status: Never smoker alcohol intake frequency: holidays/special occasions only Substance Use Type: does not use Exam Narrative Exam Narrative: General: Cooperative, comfortable, well-developed, not in acute distress HEENT: Normocephalic, atraumatic, PERRLA, normal sclera, eyelids normal, Neck: Active full range of motion, atraumatic Chest: Normal to inspection, negative crepitus, no overlying erythema ecchymosis Respiratory: Normal respiratory effort, not in acute respiratory distress, clear to auscultation bilaterally negative cough, wheeze, tachypnea, rhonchi, rales Cardiology: Regular rate rhythm negative gallop, murmur, rubs GI/: Normal to inspection, soft, nonrigid, no tenderness to palpation, exam deferred MSK: Patient is in a sling to his right upper extremity consistent with recent surgery, but neurovascularly intact. He has no other tenderness to palpation of any other bony prominences Skin: No rashes lesions noted Neuro: Alert awake oriented x3, moves all 4 extremities spontaneously, cranial nerves intact, able to answer all questions appropriately follows commands appropriately NIH of 0 no focal deficits Psych: Cooperative, negative suicidal or homicidal ideations Initial Vital Signs Initial Vital Signs: Vital Signs Temperature 98.9 F 01/19/24 11:52 Pulse Rate 70 01/19/24 11:52 Respiratory Rate 18 01/19/24 11:52 Blood Pressure 111/65 01/19/24 11:52 Pulse Oximetry 98 01/19/24 11:52 Oxygen Delivery Method Room Air 01/19/24 11:52 Course Orders Ordered: ED Orders 01/19/24 11:53 EKG-12 Lead Stat 01/19/24 11:54 CT angio chest PE protocol Stat CT head/brain wo con Stat 01/19/24 12:00 Complete Blood Count AUTO DIFF Stat Comprehensive Metabolic Panel Stat Lipase Stat Magnesium Stat NT-proBNP (BNP-Adult 18+) Stat PTT Partial Thromboplastin Bill Stat Prothrombin Time INR Stat Troponin & CK Cardiac Panel Stat Discontinued Medications Aspirin (Aspirin 81 Mg Chew Tab) 324 mg PO NOW ONE Stop: 01/19/24 11:54 Last Admin: 01/19/24 11:54 Dose: Not Given Documented By: RB Vital Signs Vital signs: Vital Signs - 8 hr 01/19/24 11:52 01/19/24 11:53 01/19/24 12:00 Temperature 98.9 F Pulse Rate 70 114 H 119 H Respiratory Rate 18 17 20 Blood Pressure 111/65 Pulse Oximetry 98 98 98 Oxygen Delivery Method Room Air 01/19/24 12:00 Temperature Pulse Rate Respiratory Rate Blood Pressure 115/69 Pulse Oximetry Oxygen Delivery Method MDM - Syncope Differential Diagnosis Differential diagnosis: Likely syncope due to orthostatic hypotension, vasovagal syncope, subarachnoid hemorrhage, pulmonary embolism and dehydration Lab Data 01/19/24 12:00 01/19/24 12:00 Labs: Lab Results 01/19/24 Range/Units 12:00 WBC 12.5 H (4.5-11.0) X10^3/uL RBC 4.09 L (4.5-5.9) X10^6/uL Hgb 11.4 L (13.5-17.5) g/dL Hct 34.7 L (41-53) % MCV 84.9 (80-100) fL MCH 27.8 (26-34) PG MCHC 32.8 (30-36) % RDW 13.8 (11.6-14.8) % Plt Count 204 (150-400) X10^3/uL Neut % (Auto) 72.0 (50-75) % Lymph % (Auto) 16.3 L (25-40) % [place] % (Auto) 10.0 (3-14) % Eos % (Auto) 0.9 L (2-4) % Baso % (Auto) 0.8 (0-2) % Neut # (Auto) 9000 H (0867-6977) /uL Lymph # (Auto) 2000 (3960-2124) /uL [place] # (Auto) 1300 H (0-900) /uL Eos # (Auto) 100 (0-450) /uL Baso # (Auto) 100 (0-100) /uL PT 13.4 H (9.4-12.5) SECONDS INR 1.2 (0.9-1.3) APTT 23 L (25.1-36.5) SECONDS Sodium 136 L (137-145) mmol/L Potassium 4.0 (3.4-5.1) mmol/L Chloride 104 (98-107) mmol/L Carbon Dioxide 24 (22-32) mmol/L BUN 21 H (9-20) mg/dL Creatinine 0.88 (0.66-1.25) mg/dL Estimated GFR > 60 (>60) mL/min BUN/Creatinine Ratio 23.9 H (6-22) Glucose 182 H (80-110) mg/dL Calcium 9.2 (8.4-10.2) mg/dL Magnesium 1.9 (1.6-2.3) mg/dL Total Bilirubin 1.1 (0.2-1.3) mg/dL AST 41 (17-59) IU/L ALT 24 (<50) IU/L Alkaline Phosphatase 63 (38-126) U/L Total Creatine Kinase 603 H (55-170) U/L Troponin I < 0.012 (0.01-0.034) ng/mL NT-Pro-B Natriuret Pep 1800 H (<125) pg/mL Total Protein 6.9 (6.3-8.2) g/dL Albumin 4.0 (3.5-5.0) g/dL Globulin 2.9 (1.7-4.1) g/dL Albumin/Globulin Ratio 1.4 (1.0-2.8) Lipase 25 (23-300) U/L Imaging Data CT scan - head: Radiologist's Impression: [address] [address] [address] Scan Report Signed Patient: Luke Little MR#: [id number] : 1955 Acct:[id number] Age/Sex: 68 / M Date of Service: 01/19/24 Loc: ED Accession Number: [id number] Procedure: CT head/brain wo con Ordering Provider: Jagdeep Mcdonald D.O. PROCEDURE: CT HEAD/BRAIN WO CON INDICATIONS: fall syncope TECHNIQUE: Noncontrast 4.5 mm thick angled axial sections acquired from the foramen magnum to the vertex, with coronal and sagittal reformats. For radiation dose reduction, the following was used: automated exposure control, adjustment of mA and/or kV according to patient size. COMPARISON: None. FINDINGS: Image quality: Diagnostic. CSF spaces: Basal cisterns are patent. No extra-axial fluid collections. The ventricles are symmetric in size and shape. Brain: No intracranial bleeds or masses. Possible small focus of encephalomalacia within the peripheral right frontal lobe versus prominent sulcus. There is cerebral volume loss for age, with resultant ventricular and sulcal prominence. There are periventricular and deep white matter chronic small vessel ischemic changes. There is intracranial internal carotid artery atherosclerosis. Skull and face: Calvarium and visualized facial bones appear intact, without suspicious lesions. Sinuses: Visualized sinuses and mastoids are clear. IMPRESSION: No acute intracranial pathology. CTA chest: Radiologist's Impression: [address] [address] [address] Scan Report Signed Patient: Luke Little MR#: [id number] : 1955 Acct:[id number] Age/Sex: 68 / M Date of Service: 01/19/24 Loc: ED Accession Number: [id number] Procedure: CT angio chest PE protocol Ordering Provider: Baluyot,Jagdeep D.O. PROCEDURE: CT ANGIO CHEST PE PROTOCOL INDICATIONS: syncope , hx afib not on anticoag TECHNIQUE: After the administration of intravenous contrast, 2 mm thick sections acquired from the pulmonary apices to the posterior costophrenic angles. 3-dimensional maximum intensity projection (MIP) coronal and sagittal reformats were then acquired through the thorax. For radiation dose reduction, the following was used: automated exposure control, adjustment of mA and/or kV according to patient size. COMPARISON: [facility], CT, CT SHOULDER RIGHT WITHOUT CON, 12/31/2023, 13:12. [facility], CT, CT HEAD/BRAIN WO CON, 01/19/2024, 12:47. FINDINGS: Image quality: There is artifact associated with the metallic hardware. Artifact from the metallic hardware is reduced by metal reconstruction algorithm. Pulmonary arteries: Pulmonary arteries are normal in size, and demonstrate no intraluminal filling defects to suggest central pulmonary embolism. Lower Neck: No enlarged lymph nodes. Thyroid: No thyroid nodules which require sonographic follow up, per consensus guidelines. Axillae: No enlarged lymph nodes. Chest Wall: Soft tissue gas and inflammatory change can be seen involving right shoulder. Bones: Right shoulder arthroplasty hardware is seen. Moderate dextroconvex scoliosis is seen. Degenerative changes are seen, particular involving the lower cervical spine. Lungs and Pleura: No pneumothorax or pleural effusions. No consolidation or suspicious nodules. Heart: Heart size is normal. No pericardial effusion. Thoracic Vessels: No aortic aneurysm. Mediastinum and Melita: No enlarged lymph nodes. Esophagus: No wall thickening. No hiatal hernia. Upper Abdomen: Cholecystectomy clips are seen. Visualized upper abdomen solid organs and bowel loops appear normal. IMPRESSION: No pulmonary embolus. No acute cardiopulmonary process. Recent right shoulder surgery, with associated soft tissue gas. ECG Data Attestation: I personally reviewed and interpreted this ECG as follows: Interpretation: EKG interpreted ED physician atrial fibrillation 96 beats per minute, QTC [address] changes no STEMI MDM Narrative Medical decision making narrative: Patient is a 68-year-old male with a history of paroxysmal AFib on Eliquis, hypertension hyperlipidemia, comes into the ED from home for evaluation of syncope. Patient has not been on his Eliquis for the past 3 days due to the fact that he just had a total right shoulder reversal performed at [facility] yesterday. He states that he passed out when he was attempting to take off his shirt today. Patient stating that he does have a history of vasovagal syncope. But given his recent surgery wanted to be evaluated. Here CT scan of the head did not show any intracranial hemorrhage. CTA without any signs of PE. Lab work otherwise unremarkable. Patient Gage syncope score low (-2). Patient was given strict return precautions he verbalized understanding of this and agrees to being discharged home with outpatient follow up Discharge Plan Departure Patient Disposition: Home Clinical Impression: Syncope Prescriptions: No Action nitroglycerin 0.4 mg tablet, sublingual 0.4 mg SL 12 Days multivitamin tablet 1 tab PO DAILY aspirin 81 MG tablet,delayed release (DR/EC) 162 mg PO Q DAY Qty: 0 (DME) [employer] Remstar CPAP Qty: 1 Dose Instruction: As directed Rx Instructions: Pressure: 8-16 cmH2O DME: [facility] Xarelto 20 mg tablet 20 mg PO DAILY Qty: 90 1RF sertraline 100 mg tablet 100 mg PO DAILY Qty: 90 1RF Rx Instructions: take 1 tab daily Ozempic 1 mg/dose (4 mg/3 mL) pen injector 1 mg SUBCUT QWEEK Qty: 3 2RF latanoprost 0.005 % drops EYE-BOTH amlodipine [Norvasc] 5 mg tablet 5 mg PO QDAY Qty: 90 1RF atorvastatin 40 mg tablet 40 mg PO BEDTIME 90 Days Qty: 90 1RF levothyroxine 50 mcg tablet 50 mcg PO DAILY Qty: 90 1RF losartan 100 mg tablet 100 mg PO DAILY Qty: 90 1RF metformin 500 mg tablet 500 mg PO BID Qty: 180 1RF metoprolol succinate 25 mg tablet extended release 24 hr 25 mg PO DAILY Qty: 90 1RF Referrals: Sabra Perez DO [Primary Care Provider] - Stand Alone Forms: Patient Portal/API
[2024-01-19 12:11] LABS: Add Manual Diff / Slide Review NO; Basophils Absolute Auto 100 /uL (0-100); Basophils Percent Auto 0.8 % (0-2); Eosinophils Absolute Auto 100 /uL (0-450); Eosinophils Percent Auto 0.9 % (2-4); Hematocrit 34.7 % (41-53); Hemoglobin 11.4 g/dL (13.5-17.5); Lymphocytes Absolute Auto 2000 /uL (1100-4500); Lymphocytes Percent Auto 16.3 % (25-40); Mean Corpuscular HGB Conc 32.8 % (30-36); Mean Corpuscular Hemoglobin 27.8 PG (26-34); Mean Corpuscular Volume 84.9 fL (80-100); Monocytes Absolute Auto 1300 /uL (0-900); Neutrophils Absolute Auto 9000 /uL (1500-7000); Platelet Count 204 X10^3/uL (150-400); Red Blood Cell Count 4.09 X10^6/uL (4.5-5.9); Red Cell Distribution Width 13.8 % (11.6-14.8); White Blood Cell Count 12.5 X10^3/uL (4.5-11.0)
[2024-01-19 12:17] LABS: INR 1.2 (0.9-1.3); Prothrombin Time 13.4 SECONDS (9.4-12.5)
[2024-01-19 12:19] LABS: PTT Partial Thromboplastin Tim 23 SECONDS (25.1-36.5)
[2024-01-19 12:23] LABS: Alanine Aminotransferase 24 IU/L (<50); Albumin Globulin Ratio 1.4 (1.0-2.8); Alkaline Phosphatase 63 U/L (38-126); Aspartate Aminotransferase 41 IU/L (17-59); BUN Creatinine Ratio 23.9 (6-22); Bilirubin Total 1.1 mg/dL (0.2-1.3); Blood Urea Nitrogen 21 mg/dL (9-20); Calcium 9.2 mg/dL (8.4-10.2); Carbon Dioxide 24 mmol/L (22-32); Chloride 104 mmol/L (98-107); Creatine Kinase 603 U/L (55-170); Estimated Glomerular Filt Rate > 60 mL/min (>60); Globulin 2.9 g/dL (1.7-4.1); Glucose 182 mg/dL (80-110); HEMOLYSIS < 15 (0-50); Lipase 25 U/L (23-300); Magnesium 1.9 mg/dL (1.6-2.3); Sodium 136 mmol/L (137-145); Total Protein 6.9 g/dL (6.3-8.2)
[2024-01-19 12:34] LABS: NT-proBNP (BNP-Adult 18+) 1800 pg/mL (<125); Troponin I < 0.012 ng/mL (0.01-0.034)
== END 2024-01-19 13:54 | disposition home or self-care (01) ==
PROVIDERS: Emergency Provider Student in an Organized Health Care Education/Training Program; PCP Family Medicine
DX: R55 Syncope and collapse (principal); I48.0 Paroxysmal atrial fibrillation; Z79.01 Long term (current) use of anticoagulants
CPT/HCPCS: 36415; 70450; 71275; 80053; 82550; 83690; 83735; 83880; 84484; 85025; 85610; 85730; 93005; 99283; 99284; Q9967

== ENCOUNTER → 2024-03-03 12:41 | Outpatient (CLI) | payer MEDICARE, OTHER, SELFPAY ==
[2024-03-03 13:27] LABS: Hemoglobin A1C% w Est Avg Glu 5.9 % (4.0-6.0)
[2024-03-03 14:06] LABS: Prostate Specific Antigen Scrn 0.675 ng/mL (0.1-4.0)
== END ==
PROVIDERS: PCP Family Medicine; Referring Provider Family Medicine; Visit Provider Family Medicine
DX: E11.9 Type 2 diabetes mellitus without complications (principal); Z12.5 Encounter for screening for malignant neoplasm of prostate
CPT/HCPCS: 36415; 83036; G0103

== ENCOUNTER → 2024-03-04 12:01 | Outpatient (CLI) | payer MEDICARE, OTHER, SELFPAY ==
[2024-03-04 13:49] LABS: Microalbumin Urine Random 5.9 mg/dL (0-1.6)
[2024-03-04 13:54] LABS: Creatinine Urine Random 132.61 mg/dL
== END ==
PROVIDERS: PCP Family Medicine; Referring Provider Family Medicine; Visit Provider Family Medicine
DX: E66.9 Obesity, unspecified (principal); E11.9 Type 2 diabetes mellitus without complications
CPT/HCPCS: 82043; 82570

== ENCOUNTER → 2024-03-20 09:25 | Outpatient (CLI) | payer MEDICARE, OTHER, SELFPAY ==
[2024-03-20 10:34] LABS: Influenza A - CEPHEID Flu A NEGATIVE (NEGATIVE); Influenza B - CEPHEID Flu B NEGATIVE (NEGATIVE); Respiratory Syncytial Virus Negative (Negative)
[2024-03-20 10:36] LABS: COVID-19 CEPHEID 4-PLEX PCR Negative (Negative)
== END ==
PROVIDERS: PCP Family Medicine; Visit Provider Nurse Practitioner Family
DX: J02.8 Acute pharyngitis due to other specified organisms (principal); B97.89 Other viral agents as the cause of diseases classified elsewhere
CPT/HCPCS: 0241U

== ENCOUNTER → 2024-04-04 06:43 | Outpatient (CLI) | payer MEDICARE, OTHER, SELFPAY ==
--- NOTE | 2024-04-04 06:44 | DI.ECHO.S_ITS ---
[facility] : : [address] : : [place] : : [id number] : : Phone: [phone] Echocardiogram Report + + :Name: JOSI GUTIERREZ Study Date: 04/04/2024 Height: 66 in : :Hospital ReadingLocation: Weight: 215 lb : : Gender: Male BSA: 2.1 m2 : :: 1955 Age: 68 yrs BP: 134/83 mmHg: :Reason For Study: ATRIAL FIBRILLATION : :Ordering Physician: BERTRAM, : :NEHEMIAS Performed By: Celia Escobar : :Referring: NEHEMIAS BURDEN : + + Interpretation Summary 1) Normal left ventricular thickness and size with low normal systolic function (EF 50-55%). 2) Mildly enlarged right ventricle with normal function. 3) There is mild mitral regurgitation. 4) No prior Echo available for comparison. Procedure: A two-dimensional transthoracic echocardiogram with color flow and Doppler was performed. The study quality was technically adequate. There is no prior echocardiogram noted for this patient. The patient was in sinus rhythm with heart rates between 69-80 bpm during the exam. Left Ventricle: The left ventricle is normal in size and wall thickness. The ejection fraction is estimated to be 50-55%. There are no focal wall motion abnormalities. Right Ventricle: The right ventricle is mildly dilated. The right ventricular systolic function is normal. Atria: The left atrium is moderately dilated. Right atrial size is normal. There is no Doppler evidence for an interatrial shunt. Mitral Valve: The mitral valve leaflets appear mildly thickened, but open well. There is mild mitral regurgitation. Aortic Valve: The aortic valve is trileaflet. The aortic valve opens well. There is no aortic valve stenosis. There is trace aortic regurgitation. Tricuspid Valve: The tricuspid valve leaflets are thin and pliable. There is mild tricuspid regurgitation. The right ventricular systolic pressure is estimated to be at least 27 mmHg based on an estimated right atrial pressure of 3 mm Hg. Pulmonic Valve: The pulmonic valve leaflets are thin and pliable; valve motion is normal. There is mild pulmonic regurgitation. Great Vessels: The aortic root is normal size. The dimensions of the ascending aorta are normal. The IVC is of normal diameter and collapses greater than 50% with a sniff. This suggests a low right atrial pressure of 3 mm Hg. Pericardium/ Pleura There is no pericardial effusion. There is no pleural effusion. MMode/2D Measurements & Calculations LVIDd: 4.7 cm LVOT diam: 2.0 cm LVIDs: 3.4 cm Ao root diam: 3.4 cm FS: 28.8 % asc Aorta Diam: 3.5 cm EPSS: 0.76 cm Ao Arch Diam (Prox Trans): 3.1 cm IVSd: 0.98 cm LVPWd: 0.93 cm LV huddleston. diameter/BSA (cm/m^2): 2.3 LV sys. diameter/BSA (cm/m^2): 1.6 LA A2 area: 27.9 cm2 RA long axis: 5.3 cm LA A4 area: 19.7 cm2 RA area: 14.4 cm2 LA length (vol): 5.5 cm RA vol: 33.3 ml LA vol: 84.6 ml RA : 16.1 ml/m2 LA vol index: 41.0 ml/m2 IVC diam: 1.4 cm RVD1 (basal): 4.4 cm RVD2 (mid): 3.1 cm TAPSE: 2.3 cm Doppler Measurements & Calculations Ao V2 max: 102.2 cm/sec LVOT Max Breezy: 80.4 cm/sec Ao V2 mean: 77.4 cm/sec LV V1 max P.6 mmHg Ao max P.2 mmHg LV V1 VTI: 16.6 cm Ao mean P.6 mmHg CARMELA(I,D): 2.8 cm2 Ao V2 VTI: 19.4 cm CARMELA(V,D): 2.5 cm2 sev ratio: 0.86 CARMELA indexed to BSA (cm^2/m^2): 1.3 MV E max breezy: 55.9 cm/sec TR max breezy: 242.6 cm/sec MV A max breezy: 40.4 cm/sec TR max P.5 mmHg MV E/A: 1.4 PA V2 max: 76.2 cm/sec Med Peak E' Breezy: 7.7 cm/sec PA V2 mean: 56.4 cm/sec E/E' med: 7.2 PA mean P.4 mmHg Lat Peak E' Breezy: 9.2 cm/sec PA pr(Accel): 34.5 mmHg E/E' lat: 6.1 E/e' average: 6.7 MV dec time: 0.24 sec SV(LVOT): 53.9 ml Reading Physician:01:42 PM
== END ==
PROVIDERS: PCP Family Medicine; Referring Provider Family Medicine; Visit Provider Family Medicine
DX: I08.1 Rheumatic disorders of both mitral and tricuspid valves (principal); I48.91 Unspecified atrial fibrillation; R55 Syncope and collapse; E11.9 Type 2 diabetes mellitus without complications; E03.9 Hypothyroidism, unspecified; E66.9 Obesity, unspecified; Z86.73 Personal history of transient ischemic attack (TIA), and cerebral infarction without residual deficits
CPT/HCPCS: 93306

== ENCOUNTER → 2024-04-06 15:04 | Outpatient (CLI) | payer MEDICARE, OTHER, SELFPAY ==
--- NOTE | 2024-04-06 15:07 | DI.MRI.S_ITS ---
PROCEDURE: MR KNEE RT WO CON INDICATIONS: tear of medial meniscus TECHNIQUE: Noncontrast sagittal PD fast spin echo and T2 fast spin echo with fat saturation, sagittal 3-D FLASH with fat saturation; coronal T1 spin echo and PD fast spin echo with fat saturation, and axial PD fast spin echo with fat saturation through the knee. COMPARISON: [facility], MR, MR KNEE RT WO CON, 10/06/2023, 12:40. FINDINGS: Image quality: Excellent. Menisci: Horizontal oblique tear involving posterior horn of medial meniscus extending to medial periphery of inferior articulating surface. Peripheral displacement of medial meniscus bowing medial collateral ligament is also seen. The lateral meniscus is intact. Cruciate ligaments: The anterior cruciate ligament is thickened with intrasubstance T2 hyperintense signal. The posterior cruciate ligament is intact. Medial structures: The medial collateral ligament appears thickened with surrounding soft tissue edema and intrasubstance T2 hyperintense signal near its femoral insertion. Visualized portions of the pes anserinus tendons appear normal. No abnormal bursal fluid. Lateral structures: The lateral collateral ligament, long and short heads of the biceps femoris tendon appear intact. Low to moderate grade intrasubstance partial-thickness tear involving popliteus tendon extending to musculotendinous junction is seen. Iliotibial band appears normal. Anterior structures: The quadriceps and patellar tendons appear intact. Patellar alignment is normal. No edema in the infrapatellar fat pad. 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 There is large osteochondral injury and suggestion of subcortical fracture involving weight-bearing portion of medial femoral condyle with flattening of the articulating surface. Postsurgical changes are noted in adjacent medial tibial plateau with susceptibility artifacts. No other area of abnormal marrow signal. Low-grade chondromalacia and mild osteoarthritis in lateral femoral tibial compartment and patellofemoral compartment is seen. Joint space: There is moderate knee joint fluid. There is a popliteal cyst measures 2.4 x 2.3 x 5 cm in size. Normal appearing synovial plicae are incidentally noted. IMPRESSION: 1. Horizontal oblique tear involving posterior horn of medial meniscus extending to medial periphery of inferior articulating surface with suggestion of a small flap. No evidence of lateral meniscal tear. 2. Moderate grade sprain/intrasubstance partial-thickness tear involving ACL near its tibial insertion. No ACL rupture. The PCL is intact. 3. Moderate grade sprain/partial-thickness tear involving medial collateral ligament near its femoral insertion. Low to moderate grade intrasubstance partial-thickness tear involving popliteus tendon extending to musculotendinous junction. 4. 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 Suggestion of large osteochondral injury involving weight-bearing portion of medial femoral condyle with surrounding edema. Underlying subcortical fracture cannot be excluded. No other area of abnormal marrow signal. Mild osteoarthritis and low-grade chondromalacia in lateral femoral tibial compartment and patellofemoral compartment. 5. Moderate joint effusion and a small popliteal cyst as above, no loose bodies. Dictated by: Milton Sauceda M.D. on 04/07/2024 at 12:28 Approved by: Milton Sauceda M.D. on 04/07/2024 at 12:56
== END ==
PROVIDERS: PCP Family Medicine; Referring Provider Physician Assistant Surgical; Visit Provider Physician Assistant Surgical
DX: S83.241D Other tear of medial meniscus, current injury, right knee, subsequent encounter (principal); M17.11 Unilateral primary osteoarthritis, right knee; S83.511A Sprain of anterior cruciate ligament of right knee, initial encounter; S83.411A Sprain of medial collateral ligament of right knee, initial encounter; S83.8X1A Sprain of other specified parts of right knee, initial encounter; M22.41 Chondromalacia patellae, right knee; M25.461 Effusion, right knee; M71.21 Synovial cyst of popliteal space [Baker], right knee
CPT/HCPCS: 73721

== ENCOUNTER → 2024-04-17 14:20 | Outpatient (CLI) | payer MEDICARE, OTHER, SELFPAY ==
--- NOTE | 2024-04-17 14:23 | DI.RAD.S_ITS ---
PROCEDURE: XR DEXA AXIAL SKELETON INDICATIONS: osteoporosis screening COMPARISON: None. FINDINGS: Lumbar Spine: Bone mineral density 1.023 g/cm2, T score -0.2, within normal limits. Left Hip: Bone mineral density 0.973 g/cm2, T score 0.3, within normal limits. Left Femoral Neck: Bone mineral density 0.679 g/cm2, T score -1.5, osteopenia. Fracture Risk Calculation (when applicable): 10-year fracture risk of a major osteoporotic fracture 10 percent and of a hip fracture 2.6 percent. (T score greater or equal to -1.0 to: NORMAL) (T score from -1.1 to -2.4: OSTEOPENIA) (T score less than or equal to -2.5: OSTEOPOROSIS) IMPRESSION: Osteopenia of the left femoral neck. Bone mineral density is normal within the left hip and lumbar spine. Follow-up guidelines as follows: Osteoporosis: Consider a repeat DEXA and Vertebral Fracture Assessment (VFA) exam in 2 years or sooner if medically necessary, to reassess this patient's status. Osteopenia: Consider a repeat DEXA in 2-3 years to reassess this patient's status, or if there is a new clinical indication. Normal: Consider a repeat DEXA in 5 years or sooner, or if there is a new clinical indication. All treatment decisions require clinical judgment and consideration of individual patient factors, including patient preferences, comorbidities, previous drug use, risk factors not captured in the FRAX model (e.g., frailty, falls, vitamin D deficiency, increased bone turnover, interval significant decline in bone density ) and possible under- or over-estimation of fracture risk by FRAX. In addition, the [employer] Guide recommends that FDA-approved medical therapies be considered in postmenopausal women and men age >= 50 years with a: * Hip or vertebral (clinical or morphometric) fracture * T-score of <=-2.5 at the spine or hip * Ten-year fracture probability by FRAX of >= 3% for hip fracture or >=20% for major osteoporotic fracture. People with diagnosed cases of osteoporosis or at high risk for fracture should have regular bone mineral density tests. For patients eligible for Medicare, routine testing is allowed once every 2 years. The testing frequency can be increased to one year for patients who have rapidly progressing disease, those who are receiving or discontinuing medical therapy to restore bone mass, or have additional risk factors. Dictated by: Contreras Patiño M.D. on 04/17/2024 at 17:14 Approved by: Contreras Patiño M.D. on 04/17/2024 at 17:15
== END ==
PROVIDERS: PCP Family Medicine; Referring Provider Family Medicine; Visit Provider Family Medicine
DX: M85.852 Other specified disorders of bone density and structure, left thigh (principal); Z13.820 Encounter for screening for osteoporosis; Z82.62 Family history of osteoporosis; E66.9 Obesity, unspecified
CPT/HCPCS: 77080

== ENCOUNTER → 2025-02-16 13:28 | Outpatient (CLI) | payer MEDICARE, OTHER, SELFPAY ==
[2025-02-16 14:02] LABS: Add Manual Diff / Slide Review NO; Hematocrit 44.5 % (41-53); Hemoglobin 14.8 g/dL (13.5-17.5); Lymphocytes Absolute Auto 1900 /uL (1100-4500); Mean Corpuscular HGB Conc 33.2 % (30-36); Mean Corpuscular Hemoglobin 28.1 PG (26-34); Mean Corpuscular Volume 84.7 fL (80-100); Platelet Count 193 X10^3/uL (150-400)
[2025-02-16 14:47] LABS: Thyroid Stimulating Hormone 3.75 uIU/mL (0.47-4.68)
[2025-02-16 16:53] LABS: Alanine Aminotransferase 22 IU/L (<50); Albumin 4.8 g/dL (3.5-5.0); Albumin Globulin Ratio 1.5 (1.0-2.8); Alkaline Phosphatase 72 U/L (38-126); Blood Urea Nitrogen 31 mg/dL (9-20); Calcium 9.6 mg/dL (8.4-10.2); Carbon Dioxide 25 mmol/L (22-32); Chloride 105 mmol/L (98-107); Cholesterol 137 mg/dL (140-199); Estimated Glomerular Filt Rate > 60 mL/min (>60); Globulin 3.1 g/dL (1.7-4.1); Glucose 116 mg/dL (70-99); HDL Cholesterol 61 mg/dL (40-60); HEMOLYSIS < 15 (0-50); Potassium 4.6 mmol/L (3.4-5.1); Sodium 141 mmol/L (137-145); Total Protein 7.9 g/dL (6.3-8.2); Triglycerides 192 mg/dL (35-150)
== END ==
LOC: LAB 13:37
PROVIDERS: PCP Family Medicine; Referring Provider Family Medicine; Visit Provider Family Medicine
DX: G47.33 Obstructive sleep apnea (adult) (pediatric) (principal); I48.0 Paroxysmal atrial fibrillation; E66.9 Obesity, unspecified; E11.9 Type 2 diabetes mellitus without complications; E03.9 Hypothyroidism, unspecified; Z86.73 Personal history of transient ischemic attack (TIA), and cerebral infarction without residual deficits
CPT/HCPCS: 36415; 80053; 80061; 84443; 85025